=== PATIENT | female | born 2000 | race Caucasian/White ===

== ENCOUNTER 2022-07-25 20:21 | Emergency (ER) | payer OTHER ==
[~2022-07-25] VITALS: Ht 172.7 cm; Wt 92.5 kg
[2022-07-25 20:30] VITALS: BP 103/69
--- NOTE | 2022-07-25 20:33 | NUR ---
TO LOBBY A/W BED AMBULATORY
--- NOTE | 2022-07-25 22:02 | NUR ---
PT AMBULATED TO ER BED 12
--- NOTE | 2022-07-25 22:22 | NUR ---
DR ROSE AT BEDSIDE FOR EXAM
--- NOTE | 2022-07-25 22:46 | NUR ---
SPEAKING WITH DR OLIVARES
[2022-07-25 23:10] LABS: BASOPHILS % (AUTO) 0.5 % (0.0-2.0); EOSINOPHILS # (AUTO) 0.1 K/uL (0-0.4); EOSINOPHILS % (AUTO) 0.6 % (0.0-4.0); HEMATOCRIT 40.4 % (36-48); HEMOGLOBIN 13.5 g/dL (12.0-16.0); LYMPHOCYTES # (AUTO) 2.5 K/uL (2.5-16.5); LYMPHOCYTES % (AUTO) 25.1 % (20.5-51.1); MEAN CORPUSCULAR HEMOGLOBIN 28 pg (27-31); MEAN CORPUSCULAR HGB CONC 33 g/dL (33-37); MEAN CORPUSCULAR VOLUME 83.9 fL (80-94); MONOCYTES # (AUTO) 0.7 K/uL (0.8-1.0); MONOCYTES % (AUTO) 7.4 % (1.7-9.3); NEUTROPHILS # (AUTO) 6.6 K/uL (1.8-7.7); NEUTROPHILS % (AUTO) 66.4 % (42.2-75.2); PLATELET COUNT (AUTO) 335 K/uL (140-450); RED BLOOD CELL COUNT(AUTO) 4.82 MIL/uL (4.20-5.40); RED CELL DISTRIBUTION WIDTH 14.4 % (11.6-13.7)
[2022-07-25 23:29] LABS: ALBUMIN 4.3 g/dL (3.4-5.0); ANION GAP 13.8 (8-16); CARBON DIOXIDE 24.3 mmol/L (21-32); CREATININE 0.7 mg/dL (0.6-1.3); POTASSIUM 4.1 mmol/L (3.5-5.1); TOTAL BILIRUBIN 0.2 mg/dL (0.0-1.0)
[2022-07-25] MEDS ORDERED: predniSONE 20 MG TAB PO ONE (23:30)
[2022-07-25] MEDS ORDERED: PRED20TA5 PO (23:54)
[2022-07-25] MEDS ORDERED: DEXT15DR6 OP (23:54)
[2022-07-25] MEDS ORDERED: LANO1OIN26 LEFT EYE (23:54)
[2022-07-25] MEDS ORDERED: ACYC400T14 PO (23:54)
[2022-07-26 00:10] VITALS: BP 103/69
--- NOTE | 2022-07-26 00:10 | NUR ---
PT SIGNED AMA, BUT RECEIVED ACI AND RX WITH UNDERSTANDING EXPRESSED
== END 2022-07-26 00:10 | disposition home or self-care (01) ==
LOC: MED 20:21
DX: R20.0 Anesthesia of skin (principal); R53.1 Weakness
CPT/HCPCS: 36415; 80053; 85025; 99283